=== PATIENT | female | born 1970 | race Native Hawaiian/Other Pacific Islander ===

== ENCOUNTER 2017-08-05 20:59 | Emergency (ER) | payer MEDICAID ==
[2017-08-05 21:15] VITALS: RESP 18; TEMP 98.1
[2017-08-05] MEDS ORDERED: Sodium Chloride 0.9% 1,000 ML IV ONE (21:59)
[2017-08-05 22:34] LABS: EOS % 0.2 % (1.5-5.0); GRAN # 4.36 (1.4-6.5); GRAN % 76.5 % (50.0-68.0); HEMOGLOBIN 13.5 g/dL (12.0-16.0); LYMPH # 0.8 (1.2-3.4); LYMPH % 14.4 % (22.0-35.0); MEAN CELL VOLUME 90.1 fl (80.0-105.0); MEAN CORPUSCULAR HEMOGLOBIN 31.2 pg (25.0-35.0); MEAN CORPUSCULAR HGB CONC 34.6 g/dl (31.0-37.0); MEAN PLATELET VOLUME 10.3 fl (7.0-11.0); MONO # 0.5 (0.1-0.6); MONO % 8.9 % (1.0-6.0); RBC 4.33 10^6/uL (3.5-6.1); WHITE BLOOD COUNT 5.7 10^3/ul (4.5-11.0)
[2017-08-05 22:50] LABS: ALB/GLOB RATIO 1.3 (1.1-1.8); ALBUMIN 4.5 g/dL (3.0-4.8); ALT/SGPT 32 U/L (7-56); AST/SGOT 29 U/L (14-36); BLOOD UREA NITROGEN 14 mg/dL (7-21); CALCIUM 8.9 mg/dL (8.4-10.5); GFR AFRICAN-AMERICAN > 60; GFR NON-AFRICAN AMERICAN > 60; MAGNESIUM 1.9 mg/dL (1.7-2.2)
[2017-08-05 23:11] LABS: TROPONIN I < 0.01 ng/mL
--- NOTE | 2017-08-05 23:14 | CT ---
EXAM: CT Head Without Intravenous Contrast CLINICAL HISTORY: 46 years old, female; Signs and symptoms; Dizziness; Additional info: R/O ich TECHNIQUE: Axial computed tomography images of the head/brain without intravenous contrast. All CT scans at this facility use one or more dose reduction techniques, viz.: automated exposure control; ma/kV adjustment per patient size (including targeted exams where dose is matched to indication; i.e. head); or iterative reconstruction technique. Coronal and sagittal reformatted images were created and reviewed. COMPARISON: No relevant prior studies available. FINDINGS: Brain: No intracranial hemorrhage. No mass. No definite edema. Ventricles: No hydrocephalus. Bones/joints: No acute fracture. Soft tissues: Unremarkable. Sinuses: Few maxillary retention cysts. Mastoid air cells: No mastoid effusion. Orbits: Unremarkable as visualized. IMPRESSION: 1. No definite acute intracranial abnormality. 2. Incidental/non-acute findings are described above.
[2017-08-05 23:42] VITALS: BP 128/77; PULSE 62; O2SAT 100
--- NOTE | 2017-08-06 01:56 | ED PDOC ---
Arrival/HPI - General Chief Complaint: Dizziness/Lightheaded Time Seen by Provider: 08/05/17 21:42 Historian: Patient - History of Present Illness Narrative History of Present Illness (Text): 08/06/17 21:55 A 46 year old female, with no significant past medical history, presents to the emergency department complaining of couple episodes of dizziness. Patient reports today as she was ambulating, she began experiencing dizziness. She mentions each episode lasts approximately 30-40 seconds. Notes these episodes never occurred before. Patient denies any chest pain, shortness of breath, headache, doub/blurry vision, or any other complaints. PMD: Dr. Brendon Love Past Medical History - Provider Review Nursing Documentation Reviewed: Yes - Infectious Disease Hx of Infectious Diseases: None - Reproductive Menopause: No - Psychiatric Hx Substance Use: No Family/Social History - Physician Review Nursing Documentation Reviewed: Yes Family/Social History: No Known Family HX Smoking Status: Never Smoked Hx Alcohol Use: No Hx Substance Use: No Allergies/Home Meds Allergies/Adverse Reactions: Allergies No Known Allergies Allergy (Unverified 06/06/15 10:33) Review of Systems - Physician Review All systems were reviewed & negative as marked: Yes - Review of Systems Eyes: absent: Vision Changes (no double/blurry vision) Respiratory: absent: SOB Cardiovascular: absent: Chest Pain Neurological: Dizziness (couple episodes that last approximately 30-40 seconds each). absent: Headache Physical Exam Vital Signs Reviewed: Yes Vital Signs Temp Pulse Resp BP Pulse Ox 08/05/17 23:41 62 18 128/77 100 08/05/17 21:14 98.1 F 68 18 150/81 99 Temperature: Afebrile Blood Pressure: Normal Pulse: Regular Respiratory Rate: Normal Appearance: Positive for: Well-Appearing Pain Distress: None Mental Status: Positive for: Alert and Oriented X 3 - Systems Exam Head: Present: Atraumatic, Normocephalic Pupils: Present: PERRL Extroacular Muscles: Present: EOMI Conjunctiva: Present: Normal Mouth: Present: Moist Mucous Membranes Neck: Present: Normal Range of Motion Respiratory/Chest: Present: Clear to Auscultation, Good Air Exchange. No: Respiratory Distress, Accessory Muscle Use Cardiovascular: Present: Regular Rate and Rhythm, Normal S1, S2. No: Murmurs Abdomen: Present: Normal Bowel Sounds. No: Tenderness, Distention, Peritoneal Signs Back: Present: Normal Inspection Upper Extremity: Present: Normal Inspection. No: Cyanosis, Edema Lower Extremity: Present: Normal Inspection. No: Edema Neurological: Present: GCS=15, CN II-XII Intact, Speech Normal Skin: Present: Warm, Dry, Normal Color. No: Rashes Psychiatric: Present: Alert, Oriented x 3, Normal Insight, Normal Concentration Medical Decision Making ED Course and Treatment: 08/06/17 21:58 Impression: 46 year old female with couple episodes of dizziness. No acute findings on physical exam. Plan: -- EKG -- Head CT -- Labs -- Antivert -- IV Fluids -- Reassess and disposition Progress Notes: 08/05/2017 23:[address] FINDINGS: Brain: No intracranial hemorrhage. No mass. No definite edema. Ventricles: No hydrocephalus. Bones/joints: No acute fracture. Soft tissues: Unremarkable. Sinuses: Few maxillary retention cysts. Mastoid air cells: No mastoid effusion. Orbits: Unremarkable as visualized. IMPRESSION: 1. No definite acute intracranial abnormality. 2. Incidental/non-acute findings are described above. Dictator: Chuck Parrish MD EKG: Ordered, reviewed, and independently interpreted the EKG. Rate : 62 BPM Rhythm : Sinus rhythm Interpretation : No ST-segment elevations or depressions, no T-wave inversions, normal intervals. Comparison : No previous EKG for comparison. - Lab Interpretations Lab Results: 08/05/17 22:25 08/05/17 22:25 Lab Results 08/05/17 22:25: Sodium 137, Potassium 3.7, Chloride 102, Carbon Dioxide 25, Anion Gap 14, BUN 14, Creatinine 0.6 L, Est GFR ( Amer) > 60, Est GFR ( Non-Af Amer) > 60, Random Glucose 105, Calcium 8.9, Magnesium 1.9, Total Bilirubin 0.3, AST 29, ALT 32, Alkaline Phosphatase 58, Lactate Dehydrogenase 394, Total Creatine Kinase 60, Troponin I < 0.01, Total Protein 7.8, Albumin 4.5 , Globulin 3.3, Albumin/Globulin Ratio 1.3 08/05/17 22:25: WBC 5.7, RBC 4.33, Hgb 13.5, Hct 39.0, MCV 90.1, MCH 31.2, MCHC 34.6, RDW 12.0, Plt Count 196, MPV 10.3, Gran % 76.5 H, Lymph % (Auto) 14.4 L, [place] % (Auto) 8.9 H, Eos % (Auto) 0.2 L, Baso % (Auto) 0.0, Gran # 4.36, Lymph # 0.8 L, [place] # 0.5, Eos # 0.0, Baso # 0.00 I have reviewed the lab results: Yes - RAD Interpretation Radiology Orders: 08/05/17 21:58 HEAD W/O CONTRAST [CT] Stat - Medication Orders Current Medication Orders: Discontinued Medications Sodium Chloride (Sodium Chloride 0.9%) 1,000 mls @ 250 mls/hr IV .Q4H ONE Stop: 08/06/17 01:58 Last Admin: 08/05/17 22:32 Dose: 250 mls/hr eMAR Start Stop Document 08/05/17 22:32 RD (Rec: 08/05/17 22:32 RD [id number]) Intravenous Solution Start Date 08/05/17 Start Time 22:32 Meclizine HCl (Antivert) 25 mg PO STAT STA Stop: 08/05/17 22:00 Last Admin: 08/05/17 22:32 Dose: 25 mg - Scribe Statement The provider has reviewed the documentation as recorded by the Margie Hay Provider Scribe Attestation: All medical record entries made by the Scribe were at my direction and personally dictated by me. I have reviewed the chart and agree that the record accurately reflects my personal performance of the history, physical exam, medical decision making, and the department course for this patient. I have also personally directed, reviewed, and agree with the discharge instructions and disposition. Disposition/Present on Arrival - Present on Arrival Any Indicators Present on Arrival: No History of DVT/PE: No History of Uncontrolled Diabetes: No Urinary Catheter: No History of Decub. Ulcer: No History Surgical Site Infection Following: None - Disposition Have Diagnosis and Disposition been Completed?: Yes Diagnosis: Dizziness Disposition: HOME/ ROUTINE Disposition Time: 23:15 Condition: IMPROVED Discharge Instructions (ExitCare): Dizziness (ED) Additional Instructions: Thank you for letting us take care of you today. The emergency medical care you received today was directed at your acute symptoms. If you were prescribed any medication, please fill it and take as directed. It may take several days for your symptoms to resolve. Return to the Emergency Department if your symptoms worsen, do not improve, or if you have any other problems. Please contact your doctor or call one of the physicians/clinics you have been referred to that are listed on the Patient Visit Information form that is included in your discharge packet. Bring any paperwork you were given at discharge with you along with any medications you are taking to your follow up visit. Our treatment cannot replace ongoing medical care by a primary care provider (PCP) outside of the emergency department. Thank you for allowing the [facility] team to be part of your care today. Follow up with your doctor in 2-3 days for re-evaluation and further management. Prescriptions: Meclizine [Meclizine*] 25 mg PO Q6 PRN #20 tab PRN Reason: Dizziness Referrals: Brendon Love [Primary Care Provider] - Follow up with primary Forms: [employer] (Colombian)
--- NOTE | 2017-08-06 10:48 | CARD ---
APPROVED REPORT EKG Measurement Heart [id number] <Conclusion> Normal sinus rhythm Low voltage QRS Borderline ECG
== END 2017-08-06 00:45 | disposition home or self-care (01) ==
LOC: ED 20:59
DX: R42 Dizziness and giddiness (principal)
CPT/HCPCS: 70450; 80053; 82550; 83615; 83735; 84484; 85025; 93005; 99285; J7040

== ENCOUNTER 2018-10-14 19:42 | Emergency (ER) | payer MEDICAID ==
[2018-10-14 20:20] VITALS: BMI 23.8
[2018-10-14 20:22] VITALS: RESP 18; TEMP 98.3
[2018-10-14] MEDS ORDERED: Sodium Chloride 0.9% 1,000 ML IV STA (21:09)
--- NOTE | 2018-10-14 21:28 | ED PDOC ---
Arrival/HPI - General Chief Complaint: Dizziness/Lightheaded - History of Present Illness Narrative History of Present Illness (Text): 10/14/18 21:18 47 y/o F w/ h/o vertigo presenting to the Emergency Room with complaint of dizziness ongoing for the last 2 weeks. Patient describes her symptoms as intermittent lasting in 30 second recurrent episodes in which she feels "off balance". She reports a ringing sensation in her ears bilaterally as well as a sense of jaw heaviness. She reports worsening of her symptoms with food and movement especially standing upright. She denies taking any medication for her symptoms aside from self-medicating with water and sitting down. PCP: Dr. Perea Time/Duration: > week Symptom Onset: Gradual Symptom Course: Intermittent Severity Level: Moderate Context: Standing, Home Past Medical History - Provider Review Nursing Documentation Reviewed: Yes - Travel History Have you recently traveled outside [place] w/in the past 3 mons?: No - Infectious Disease Hx of Infectious Diseases: None - Psychiatric Hx Substance Use: No Family/Social History - Physician Review Nursing Documentation Reviewed: Yes Family/Social History: Unknown Family HX Smoking Status: Never Smoked Hx Alcohol Use: No Hx Substance Use: No Allergies/Home Meds Allergies/Adverse Reactions: Allergies No Known Allergies Allergy (Verified 10/14/18 20:20) Review of Systems - Physician Review All systems were reviewed & negative as marked: Yes - Review of Systems Eyes: absent: Vision Changes, Photophobia, Eye Pain ENT: Tinnitus Neurological: Dizziness. absent: Headache, Focal Weakness Physical Exam Vital Signs Reviewed: Yes Vital Signs Temp Pulse Resp BP Pulse Ox 10/14/18 20:20 98.3 F 65 18 144/84 100 Temperature: Afebrile Blood Pressure: Normal Pulse: Regular Respiratory Rate: Normal Appearance: Positive for: Well-Appearing, Non-Toxic, Comfortable Mental Status: Positive for: Alert and Oriented X 3 - Systems Exam Head: Present: Atraumatic, Normocephalic Pupils: Present: PERRL, Other (No nystagmus noted) Extroacular Muscles: Present: EOMI Conjunctiva: Present: Normal Mouth: Present: Moist Mucous Membranes Neck: Present: Normal Range of Motion Respiratory/Chest: Present: Clear to Auscultation. No: Good Air Exchange, Respiratory Distress Cardiovascular: Present: Regular Rate and Rhythm, Normal S1, S2 Abdomen: Present: Normal Bowel Sounds. No: Tenderness, Distention Neurological: Present: CN II-XII Intact, Speech Normal, Motor Func Grossly Intact, Normal Sensory Function Skin: Present: Warm, Dry, Normal Color. No: Rashes Psychiatric: Present: Alert, Oriented x 3, Normal Insight, Normal Concentration Medical Decision Making ED Course and Treatment: 10/14/18 21:30 Impression 47y/o F w/ h/o vertigo presenting to the Emergency Room for 2 weeks of intermittent dizziness Differential Diagnoses Includes But Is Not Limited To: --BPPV --Otosclerosis --Vestibular Neuritis --Meniere's Disease Plan --IVF --Antivert --Reglan --Poc urine --Reassess & disposition Progress Notes 10/14/18 22:02 Patient desires to go home at this time, stating she does not want any add itional fluids. She denies any symptoms at this time. She is educated on possible etiology of her symptoms and is advised to follow up with ENT physicians. She acknowledges and demonstrates understanding and will follow up. Scripts given and opportunity for questions provided an answered. She is stable for discharge. - Medication Orders Current Medication Orders: Sodium Chloride (Sodium Chloride 0.9%) 1,000 mls @ 999 mls/hr IV .Q1H1M STA Stop: 10/14/18 22:09 Discontinued Medications Meclizine HCl (Antivert) 25 mg PO STAT STA Stop: 10/14/18 21:10 Metoclopramide HCl (Reglan) 10 mg IVP STAT STA Stop: 10/14/18 21:10 Disposition/Present on Arrival - Present on Arrival Any Indicators Present on Arrival: No History of DVT/PE: No History of Uncontrolled Diabetes: No Urinary Catheter: No History of Decub. Ulcer: No History Surgical Site Infection Following: None - Disposition Have Diagnosis and Disposition been Completed?: Yes Diagnosis: Vertigo Disposition: HOME/ ROUTINE Disposition Time: 21:59 Patient Plan: Discharge Condition: IMPROVED Discharge Instructions (ExitCare): Vertigo (a Type of Dizziness) (DC) Print Language: BELIZEAN Additional Instructions: All medical record entries made by the Scribe were at my direction and personally dictated by me. I have reviewed the chart and agree that the record accurately reflects my personal performance of the history, physical exam, medical decision making, and the department course for this patient. I have also personally directed, reviewed, and agree with the discharge instructions and disposition. Please follow up with the ENT physician listed in your discharge papers for further follow up and audiologic testing Take medications for symptoms as needed Prescriptions: Meclizine [Antivert] 12.5 mg PO PRN PRN #12 tab PRN Reason: Dizziness Metoclopramide HCl [Reglan] 10 mg PO PRN PRN #10 tablet PRN Reason: Nausea/Vomiting Referrals: Carey Perea MD [Primary Care Provider] - Follow up with primary Pedrito Harman DO [Staff Provider] - Follow up with primary Forms: [employer] (Pashto)
[2018-10-14 23:14] VITALS: BP 120/79; PULSE 68; O2SAT 99
--- NOTE | 2018-10-15 10:08 | CARD ---
APPROVED REPORT Date of service: 10/14/2018 EKG Measurement Heart [id number] <Conclusion> Sinus bradycardia Otherwise normal ECG
== END 2018-10-14 22:20 | disposition home or self-care (01) ==
LOC: ED 19:42
DX: R42 Dizziness and giddiness (principal)
CPT/HCPCS: 93005; 96361; 96374; 99285; J2765; J7030